=== PATIENT | male | born 1950 | race Caucasian/White ===

== ENCOUNTER 2020-11-01 00:24 | Inpatient (IN) | payer MEDICARE ==
[~2020-11-01] VITALS: Ht 175.3 cm; Wt 115.4 kg
[~2020-11-01 00:24] MED LIST: HYDROXYZINE HCL25 MG PO
[2020-11-01 01:06] LABS: HEMOGLOBIN 11.9 gm/dl (14.0-17.5); RED BLOOD COUNT 3.73 M/UL (4.20-5.50); WHITE BLOOD COUNT 24.6 K/UL (4.5-11.0)
[2020-11-01 05:47] LABS: HEMOGLOBIN 11.6 gm/dl (14.0-17.5); RED BLOOD COUNT 3.68 M/UL (4.20-5.50); WHITE BLOOD COUNT 22.2 K/UL (4.5-11.0)
[2020-11-01] MEDS ORDERED: TRAMADOL HCL50 MG PO (10:07)
[2020-11-01] MEDS ORDERED: BUSPIRONE HCL7.5 MG PO (10:08)
[2020-11-01] MEDS ORDERED: KLONOPIN TAB 00.5 MG PO (10:09)
[2020-11-01] MEDS ORDERED: BUPROPION XL150 MG PO (10:10)
[2020-11-01] MEDS ORDERED: CRESTOR 10 MG T10 MG PO (10:11)
[2020-11-01] MEDS ORDERED: TRIAMTERENE-HC1 EAC4 PO (10:12)
--- NOTE | 2020-11-01 20:17 | NUR ---
PT WENT INTO [facility], THEN INTO SVT AND REACHED A HR OF 200. DR. DUFFY WAS CALLED AND SHE CAME TO THE FLOOR. SHE THEN ORDERED 2.5 OF LOPRESSOR THAT WAS GIVEN AND STARTED ON A AMINO DRIP WITHOUT THE BOLUS. IT WAS THEN DECIDED THAT HE NEEDED TO GO TO THE ICU IN ORDER TO KEEP A CLOSER EYE ON HIM.PT WAS THEN TRANSFERRED BY AT 1700. WAS PRESENT THE WHOLE TIME AND PTs FAMILY WAS NOTIFIED THAT HE WAS GOING TO ROOM 2118.
--- NOTE | 2020-11-01 20:21 | NUR ---
ATTEMPTED TO PLACE A CATHETER ON PT. WE USED UROJET AND ALSO GAVE HIM MORPHINE IN ORDER TO HELP EASE HIS ANXIETY DUE TO PAST EXPERIENCES WITH CATHETERS. ONCE STARTED THERE WAS A PROBLEM FINDING THE URETER. THE PT TOLERATED IT WELL BUT ONCE PAIN WAS FELT WE STOPPED AND THEN NOTIFIED THE MD. MD WAS AWARE THAT THERE WAS 345ML IN THE BLADDER THAT WAS NOTED FROM THE BLADDER SCANNER.
[2020-11-02 05:40] LABS: HEMOGLOBIN 11.8 gm/dl (14.0-17.5); RED BLOOD COUNT 3.88 M/UL (4.20-5.50)
[2020-11-02 05:45] LABS: WHITE BLOOD COUNT 32.4 K/UL (4.5-11.0)
[2020-11-04 10:06] LABS: ACINETOBACTER BAUMANNII Not Detected (Negative); CANDIDA ALBICANS Not Detected (Negative); CANDIDA KRUSEI Not Detected (Negative); CANDIDA TROPICALIS Not Detected (Negative); ENTEROCOCCUS Not Detected (Negative); ESCHERICHIA COLI Not Detected (Negative); HAEMOPHILUS INFLUENZAE Not Detected (Negative); KLEBSIELLA OXYTOCA Not Detected (Negative); KLEBSIELLA PNEUMONIAE Not Detected (Negative); KPC-CARBAPENEM-RESISTANCE GENE Not Detected (Negative); PROTEUS Not Detected (Negative); PSEUDOMONAS AERUGINOSA Not Detected (Negative); SERRATIA MARCESANS Not Detected (Negative); STAPHYLOCOCCUS Not Detected (Negative); STAPHYLOCOCCUS AUREUS Not Detected (Negative); STREP AGALACTIAE (GROUP B) Not Detected (Negative); STREP PYOGENES (GROUP A) Not Detected (Negative); STREPTOCOCCUS Not Detected (Negative); mecA (METHICILLIN RESIST GENE Not Detected (Negative); vanA/B (VANCOMYCIN RESIST GENE Not Detected (Negative)
== END 2020-11-02 11:18 | disposition expired ==
LOC: ER1 00:24 → CCU 02:20 → PROG CARE 02:20 → CDU 02:20 → PROG CARE 05:25 → CCU 17:50
PROVIDERS: Family Medicine; Hospitalist; Internal Medicine; ADMIT Internal Medicine
PROC: B24BZZ4 Ultrasonography of Heart with Aorta, Transesophageal (ICD-10-PCS; 2020-11-01)
PROC: 04HY32Z Insertion of Monitoring Device into Lower Artery, Percutaneous Approach (ICD-10-PCS; 2020-11-01)
PROC: 05HM33Z Insertion of Infusion Device into Right Internal Jugular Vein, Percutaneous Approach (ICD-10-PCS; 2020-11-01)
PROC: B543ZZA Ultrasonography of Right Jugular Veins, Guidance (ICD-10-PCS; 2020-11-01)
PROC: 3E033XZ Introduction of Vasopressor into Peripheral Vein, Percutaneous Approach (ICD-10-PCS; 2020-11-01)
PROC: 0BH17EZ Insertion of Endotracheal Airway into Trachea, Via Natural or Artificial Opening (ICD-10-PCS; 2020-11-01)
PROC: 5A1935Z Respiratory Ventilation, Less than 24 Consecutive Hours (ICD-10-PCS; 2020-11-01)
PROC: 03HY32Z Insertion of Monitoring Device into Upper Artery, Percutaneous Approach (ICD-10-PCS; 2020-11-01)
PROC: 5A12012 Performance of Cardiac Output, Single, Manual (ICD-10-PCS; principal; 2020-11-02)
DX: I21.4 Non-ST elevation (NSTEMI) myocardial infarction (principal); A41.9 Sepsis, unspecified organism; I50.31 Acute diastolic (congestive) heart failure; K72.00 Acute and subacute hepatic failure without coma; J80 Acute respiratory distress syndrome; R65.21 Severe sepsis with septic shock; N17.0 Acute kidney failure with tubular necrosis; E87.2 Acidosis; I13.0 Hypertensive heart and chronic kidney disease with heart failure and stage 1 through stage 4 chronic kidney disease, or unspecified chronic kidney disease; E87.1 Hypo-osmolality and hyponatremia; I47.2 Ventricular tachycardia; Z51.5 Encounter for palliative care; Z20.822 Contact with and (suspected) exposure to COVID-19; R57.0 Cardiogenic shock; I46.2 Cardiac arrest due to underlying cardiac condition; N18.9 Chronic kidney disease, unspecified; F32.9 Major depressive disorder, single episode, unspecified; N32.0 Bladder-neck obstruction; F41.9 Anxiety disorder, unspecified; G47.33 Obstructive sleep apnea (adult) (pediatric); K21.9 Gastro-esophageal reflux disease without esophagitis; E11.22 Type 2 diabetes mellitus with diabetic chronic kidney disease; J44.9 Chronic obstructive pulmonary disease, unspecified; E66.01 Morbid (severe) obesity due to excess calories; T50.2X5A Adverse effect of carbonic-anhydrase inhibitors, benzothiadiazides and other diuretics, initial encounter; E78.5 Hyperlipidemia, unspecified; F17.210 Nicotine dependence, cigarettes, uncomplicated; I48.91 Unspecified atrial fibrillation; Z79.01 Long term (current) use of anticoagulants; Z79.4 Long term (current) use of insulin; Z83.3 Family history of diabetes mellitus; Z82.49 Family history of ischemic heart disease and other diseases of the circulatory system; Z68.37 Body mass index [BMI] 37.0-37.9, adult
CPT/HCPCS: 31500; 36415; 36600; 71045; 80048; 80053; 80061; 80202; 82550; 82553; 82803; 82962; 83036; 83605; 83735; 83880; 84439; 84443; 84484; 85025; 85027; 85379; 85610; 85730; 87040; 87086; 87150; 93005; 93970; 94002; 94640; 94660; 94664; 99285; J0171; J1250; J1265; J1644; J1940; J2185; J2250; J2270; J2370; J2930; J3370; J7030; J7040; J7070; P9047; U0002